=== PATIENT | male | born 1950 | race Caucasian/White ===

== ENCOUNTER → 2020-03-06 17:02 | Outpatient (BNVA) | payer MEDICARE, SELFPAY | PROVIDERS: Family Provider Family Medicine; PCP Family Medicine; Visit Provider Emergency Medicine | DX: J40 Bronchitis, not specified as acute or chronic (principal); R68.89 Other general symptoms and signs | CPT/HCPCS: 87400; 87635 ==

== ENCOUNTER → 2020-03-19 19:30 | Outpatient (BNVA) | payer MEDICARE, SELFPAY | PROVIDERS: Family Provider Family Medicine; PCP Family Medicine; Visit Provider Family Medicine | DX: Z11.59 Encounter for screening for other viral diseases (principal); J40 Bronchitis, not specified as acute or chronic | CPT/HCPCS: 87635 ==

== ENCOUNTER → 2020-03-27 15:00 | Outpatient (BNVA) | payer MEDICARE, SELFPAY | PROVIDERS: Family Provider Family Medicine; PCP Family Medicine; Visit Provider Emergency Medicine | DX: Z11.59 Encounter for screening for other viral diseases (principal) | CPT/HCPCS: 87635 ==

== ENCOUNTER → 2020-04-04 10:37 | Outpatient (BNVA) | payer MEDICARE, SELFPAY | PROVIDERS: Family Provider Family Medicine; PCP Family Medicine; Visit Provider Emergency Medicine | DX: Z11.59 Encounter for screening for other viral diseases (principal) | CPT/HCPCS: 87635 ==

== ENCOUNTER → 2020-04-12 10:57 | Outpatient (BNVA) | payer MEDICARE, SELFPAY | PROVIDERS: Family Provider Family Medicine; PCP Family Medicine; Visit Provider Nurse Practitioner Family | DX: U07.1 COVID-19 (principal) | CPT/HCPCS: 87635 ==

== ENCOUNTER → 2020-04-15 09:36 | Outpatient (BNVA) | payer MEDICARE, SELFPAY | PROVIDERS: Family Provider Family Medicine; PCP Family Medicine; Visit Provider Nurse Practitioner Family | DX: Z11.59 Encounter for screening for other viral diseases (principal) | CPT/HCPCS: 87635 ==

== ENCOUNTER → 2025-03-02 08:55 | Outpatient (BNVA) | payer OTHER, MEDICARE, SELFPAY | PROVIDERS: Visit Provider Nurse Practitioner | DX: M79.672 Pain in left foot (principal); R41.3 Other amnesia; R29.6 Repeated falls | CPT/HCPCS: 73630; 80053; 80061; 82306; 82607; 82746; 84443; 85025 ==

== ENCOUNTER → 2025-04-18 09:16 | Outpatient (BNVA) | payer OTHER, MEDICARE, SELFPAY | PROVIDERS: Family Provider Nurse Practitioner; PCP Nurse Practitioner; Referring Provider Nurse Practitioner; Visit Provider Psychiatry & Neurology Neurology | DX: R41.3 Other amnesia (principal); R29.6 Repeated falls | CPT/HCPCS: 36415; 82542; 82977; 83036; 83520; 83615; 84439; 84443; 84450; 84460 ==

== ENCOUNTER 2025-04-24 12:54 | Outpatient (CLI) | payer MEDICARE, OTHER, SELFPAY ==
--- NOTE | 2025-04-24 13:21 | MR_ITS ---
WS: [id number] MRI HEAD WITH CONTRAST TECHNIQUE: Sagittal T1, T2 axial, T2 axial FLAIR, axial susceptibility weighted imaging, axial diffusion weighted images, and coronal T2 images were obtained. Pre and post-T1 axial and post T1 coronal images. ADC and FSPGR images. CLINICAL INFORMATION: OTHER AMNESIA COMPARISON: None. FINDINGS: No evidence of restricted diffusion to suggest acute ischemia. Ventricular system and basilar cisterns are patent. No hemosiderin on the susceptibility weighted images. Mild small vessel changes. Moderate parenchymal volume loss. Normal posterior fossa. Normal vascular flow voids at the skull base. No extra- axial fluid collections. No evidence of mass or mass effect. Paranasal sinuses and mastoid air cells are well aerated. Normal optic chiasm and pituitary infundibulum. 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 Normal optic chiasm and pituitary infundibulum. No abnormal gadolinium enhancement. Normal dural venous sinuses. MR/MR head wo/w con [id number] IMPRESSION: 1. No evidence of restricted diffusion to suggest acute ischemia. 2. Mild small vessel changes with moderate parenchymal volume loss. 3. 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 4. No abnormal gadolinium enhancement. 5. No hemosiderin.
--- NOTE | 2025-04-24 14:30 | USCV_ITS ---
Aristides Sin Age: 75 Gender: M : 1950 Exam Date: 04/24/2025 13:32 Ordering Phys: Tyrell Umaña MD Technologist: [facility] [place] [facility] [place]: [place] Risk Factors: Previous Vascular Surgery: Right Brachial BP: / Left Brachial BP: / Right Left Velocity (cm/s) Spectral Plaque Velocity (cm/s) Spectral Plaque Syst/Diast Broadening Syst/Diast Broadening 90.50/ 14.90 Prox CCA 85.80 / 13.60 98.40/ 19.50 Mid CCA 101.30/ 20.70 75.80/ 18.80 Distal CCA 91.90 / 18.60 36.50/ 9.70 Prox ICA 44.50 / 10.70 56.70/ 16.70 Mid ICA 47.30 / 13.50 66.90/ 15.50 Distal ICA 72.70 / 22.00 76.20 ECA 65.60 0.90 ICA/CCA 0.80 Antegrade Vertebral Antegrade 35.20/ 10.70 cm/s 23.10/ 4.40 cm/s Tri Subclavian Tri 68.10 124.3 0 FINDINGS Comparison: none available. No significant elevation of systolic or diastolic velocities. Waveforms are normal. Mixture of calcified and noncalcified plaque in the bifurcations. CONCLUSIONS Bilateral ICA stenosis less than 50%. Mild carotid atherosclerotic plaque. Dr. Linda Jones DO (Electronically Signed) Final Date: 24 April 2025 14:15 S
[2025-04-24] MEDS: gadobenate dimeglumine 20 mL vial 17 ML IV (15:33)
== END 2025-04-24 12:55 | disposition home or self-care (01) ==
LOC: RAD 12:55
PROVIDERS: PCP Nurse Practitioner; Visit Provider Psychiatry & Neurology Neurology
DX: R41.3 Other amnesia (principal); R29.6 Repeated falls; I65.23 Occlusion and stenosis of bilateral carotid arteries; I67.89 Other cerebrovascular disease; G31.89 Other specified degenerative diseases of nervous system
CPT/HCPCS: 70553; 93880

== ENCOUNTER → 2025-07-31 12:40 | Outpatient (BNVA) | payer MEDICARE, OTHER, SELFPAY | PROVIDERS: PCP Nurse Practitioner; Visit Provider Specialist | DX: G30.9 Alzheimer's disease, unspecified (principal); F02.80 Dementia in other diseases classified elsewhere, unspecified severity, without behavioral disturbance, psychotic disturbance, mood disturbance, and anxiety | CPT/HCPCS: 99215 ==

== ENCOUNTER 2025-08-14 08:31 | Outpatient (CLI) | payer MEDICARE, OTHER, SELFPAY ==
--- NOTE | 2025-08-14 09:00 | FL_ITS ---
WS: [id number] Exam: FL barium swallow modifd [id number] Date/Time of Exam: 08/14/2025 8:57 AM Reason For Exam: R13.10 - Dysphagia, unspecified Fluoroscopy time: 2min [id number] minutes # of spot films: Modified barium swallow test was performed in conjunction with the speech therapy service. Oral pharyngeal phase of swallowing was normal. The patient tolerated all consistencies of barium mixture foodstuffs without aspiration or penetration. Minimal residue noted in the piriform sinuses. The patient swallowed a barium tablet without difficulty. FL/FL barium swallow modifd [id number] IMPRESSION: 1. No aspiration or penetration identified. A separate report of findings and detailed recommendations will follow from the speech therapy service.
== END 2025-08-14 08:32 | disposition home or self-care (01) ==
LOC: RAD 08:32
PROVIDERS: PCP Nurse Practitioner; Visit Provider Specialist
DX: R13.10 Dysphagia, unspecified (principal)
CPT/HCPCS: 74230; 92611